=== PATIENT | male | born 1955 | race Caucasian/White ===

== ENCOUNTER → 2016-11-06 | Outpatient (CLI) | payer OTHER ==
[~2016-11-06] MED LIST: CYAN1000P SQ; DIOV160T6 PO; FOLI1 PO; GEMF600T PO; METO25 PO; MONT10 PO; NORC7.5T PO; OMEP20TA PO
[2016-11-06 07:23] LABS: AUTOMATED NEUTROPHIL # 0.7 TH/MM3 (1.8-7.7); BASOPHIL % 1.1 % (0.0-2.0); EOSINOPHIL # 0.2 TH/MM3 (0-0.4); EOSINOPHIL % 8.4 % (0.0-4.0); HEMATOCRIT 41.4 % (39.0-51.0); LYMPH % 46.5 % (9.0-44.0); LYMPHOCYTE # 1.1 TH/MM3 (1.0-4.8); MEAN CORPUSCULAR HGB CONC 34.4 % (32.0-36.0); MONO % 14.2 % (0.0-8.0); NEUT % 29.8 % (16.0-70.0); PLATELET COUNT 171 TH/MM3 (150-450); RED BLOOD COUNT 4.45 MIL/MM3 (4.50-5.90); RED CELL DISTRIBUTION WIDTH 12.7 % (11.6-17.2); WHITE BLOOD COUNT 2.3 TH/MM3 (4.0-11.0)
[2016-11-06 07:31] LABS: HEMO FLAGS AUTO DIFF
[2016-11-06 08:12] LABS: EOSINOPHILS 10 % (0-4); NEUTROPHIL # MANUAL DIFF 0.7 TH/MM3 (1.8-7.7); POLYS (SEG NEUTROPHILS) 31 % (16-70); WBC DIFF SAMPLE 100
[2016-11-06 08:13] LABS: PLATELET ESTIMATE SMEAR NORMAL (NORMAL); PLATELET MORPHOLOGY NORMAL (NORMAL); SCAN/DIFF FINAL DIFF MANUAL
[2016-11-06 08:16] LABS: ANION GAP 7 MEQ/L (5-15); BICARBONATE 29.9 MEQ/L (21.0-32.0); BLOOD UREA NITROGEN 10 MG/DL (7-18); CHLORIDE 104 MEQ/L (98-107); GLOMERULAR FILTRATION RATE 99 ML/MIN (>89); GLUCOSE,FASTING 99 MG/DL (74-99); POTASSIUM 4.5 MEQ/L (3.5-5.1); SODIUM (NA) 141 MEQ/L (136-145)
[2016-11-06 08:37] LABS: ALKALINE PHOSPHATASE 51 U/L (45-117); ALT (GPT) 28 U/L (12-78); AST (GOT) 24 U/L (15-37); HDL CHOLESTEROL 63.2 MG/DL (40.0-60.0); TOTAL BILIRUBIN ADULT 0.3 MG/DL (0.2-1.0)
== END ==
LOC: CLAB 07:05
PROVIDERS: ATTEND Family Medicine
DX: I10 Essential (primary) hypertension (principal); K21.9 Gastro-esophageal reflux disease without esophagitis; D68.0 Von Willebrand disease; D72.819 Decreased white blood cell count, unspecified
CPT/HCPCS: 36415; 80053; 80061; 82607; 82746; 85007; 85027

== ENCOUNTER → 2016-11-13 | Outpatient (CLI) | payer OTHER ==
--- NOTE | 2016-11-13 09:51 | RADRPT ---
EXAM DATE/TIME: 11/13/2016 09:23 [place] COMPARISON: No previous studies available for comparison. INDICATIONS : Evaluate lung status. Shortness of breath with exercise and cough. MEDICAL HISTORY : Pulmonary fibrosis. SURGICAL HISTORY : None. ENCOUNTER: Initial ACUITY: 1 week PAIN SCORE: 0/10 LOCATION: Bilateral chest FINDINGS: Trace bibasilar atelectasis. No fibrotic changes are seen. In fact, the lungs appear somewhat hyperex panded. No pleural effusion. No pneumothorax. Heart size within normal limits. CONCLUSION: Trace bibasilar atelectasis. Lungs appear hyperexpanded. Wild Payton MD on November 13, 2016 at 9:49 Board Certified Radiologist. This report was verified electronically.
--- NOTE | 2016-11-27 11:25 | RSPPFT ---
DATE OF PROCEDURE: 11/13/16 COMMENTS: Spirometry is within normal limits. Post-bronchodilator study demonstrated mild improvements in the FVC. Lung volumes appear unremarkable. Diffusion capacity is normal. Flow volume loops appear unremarkable. IMPRESSION: 1. Essentially normal pulmonary function study. 2. Mild response to use of bronchodilator indicating reactive airways. 3. Normal diffusion capacity.
== END ==
LOC: HRSP 07:51
DX: R05 Cough (principal); R06.09 Other forms of dyspnea; J84.10 Pulmonary fibrosis, unspecified
CPT/HCPCS: 71020; 94060; 94726; 94729

== ENCOUNTER → 2017-02-24 | Outpatient (CLI) | payer OTHER ==
[2017-02-24 10:29] LABS: AUTOMATED NEUTROPHIL # 2.9 TH/MM3 (1.8-7.7); BASOPHIL % 0.4 % (0.0-2.0); EOSINOPHIL # 0.1 TH/MM3 (0-0.4); EOSINOPHIL % 2.8 % (0.0-4.0); HEMATOCRIT 41.2 % (39.0-51.0); HEMO FLAGS DIFF FINAL; LYMPH % 20.8 % (9.0-44.0); MEAN CELL VOLUME 93.8 FL (80.0-100.0); MEAN CORPUSCULAR HEMOGLOBIN 32.2 PG (27.0-34.0); MEAN CORPUSCULAR HGB CONC 34.4 % (32.0-36.0); MONO % 12.2 % (0.0-8.0); NEUT % 63.8 % (16.0-70.0); PLATELET COUNT 195 TH/MM3 (150-450); RED BLOOD COUNT 4.39 MIL/MM3 (4.50-5.90); RED CELL DISTRIBUTION WIDTH 12.8 % (11.6-17.2); WHITE BLOOD COUNT 4.6 TH/MM3 (4.0-11.0)
[2017-02-24 10:55] LABS: ALKALINE PHOSPHATASE 50 U/L (45-117); HDL CHOLESTEROL 73.3 MG/DL (40.0-60.0); TOTAL BILIRUBIN ADULT 0.4 MG/DL (0.2-1.0)
[2017-02-24 11:06] LABS: ALT (GPT) 28 U/L (12-78); ANION GAP 8 MEQ/L (5-15); AST (GOT) 30 U/L (15-37); BICARBONATE 29.2 MEQ/L (21.0-32.0); BLOOD UREA NITROGEN 10 MG/DL (7-18); CHLORIDE 104 MEQ/L (98-107); GLOMERULAR FILTRATION RATE 102 ML/MIN (>89); GLUCOSE,FASTING 99 MG/DL (74-99); LDL CHOLESTEROL 73 MG/DL (0-99); POTASSIUM 4.6 MEQ/L (3.5-5.1); SODIUM (NA) 141 MEQ/L (136-145)
== END ==
LOC: CLAB 10:01
PROVIDERS: ATTEND Family Medicine
DX: I10 Essential (primary) hypertension (principal); K21.9 Gastro-esophageal reflux disease without esophagitis; E78.1 Pure hyperglyceridemia; D72.819 Decreased white blood cell count, unspecified
CPT/HCPCS: 36415; 80053; 80061; 85025

== ENCOUNTER 2018-05-27 22:23 | Inpatient (IN) ==
--- NOTE | 2018-05-27 22:56 | ED ---
HPI General Chief Complaint: Seizure Stated Complaint: Poss Seziure Time Seen by Provider: 05/27/18 22:35 Source: patient, family and EMS Mode of arrival: EMS Limitations: no limitations History of Present Illness HPI Narrative: 62-year-old male presents to the emergency department by EMS transport from home after witnessed seizure by spouse. According the patient he was in his usual state of fair health today got up at 430 AM to work came home from work and is fuzzy about the details but states that when she returned home from work has been met her at home as he had driven his car to pick his up from work and had forgotten that she was going to drive herself home from work today. Shortly after after the returned home she identified that the patient had appear to have had urinary incontinence in the bed and found blood in the bathroom and patient complained to her of having a canker sore on the tongue and she identified that he had had a tongue laceration presumptively from biting his tongue and presumed he may have had a seizure earlier in the day. is suggested that they come to the emergency room to be evaluated however the patient declined and reported he just wanted to lay down to take a nap. notes shortly after patient lying down to take a nap she heard him making noises and went into the bedroom and found him having a generalized tonic-clonic seizure that lasted 1-2 minutes. Patient was postictal afterwards and had had urine incontinence and had bitten his tongue again. No trauma was associated with the event as patient had seizure in the bed. did call paramedics to transport the patient to the hospital. Patient takes no seizure medications. 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 Patient today was working out of doors and states that he felt he became overheated and try to overcompensate with aggressive water hydration. Mentation at this time is intact. Patient also has history of hypertension alpha-1 antitrypsin deficiency and von Willebrand's disease. No recent febrile illness no chest pain patient denies any headache neck pain back pain chest pain abdominal pain joint pain or injury. MD complaint: seizure Onset (ago): minute(s) Related Data Home Medications Medication Instructions Recorded Confirmed amlodipine 5 mg PO DAILY 05/27/18 05/27/18 ascorbic acid (vitamin C) [Vitamin 2,000 mg PO DAILY 05/27/18 05/27/18 C] pnfytwn-orrrbueoj-xcbz 2 tab PO DAILY 05/27/18 05/27/18 cinnamon bark [Cinnamon] 300 mg PO DAILY 05/27/18 05/27/18 cyanocobalamin (vitamin B-12) 1,000 mcg IM Q2W 05/27/18 05/27/18 [Vitamin B-12] folic acid 1 mg PO DAILY 05/27/18 05/27/18 gemfibrozil 600 mg PO DAILY 05/27/18 05/27/18 irbesartan 300 mg PO DAILY 05/27/18 05/27/18 vy-hro-poyfp acid-lutein [Centrum 1 tab PO DAILY 05/27/18 05/27/18 Silver] omeprazole 20 mg PO DAILY 05/27/18 05/27/18 Allergies Allergy/AdvReac Type Severity Reaction Status Date / Time aspirin Allergy Severe Bleeding Verified 05/27/18 22:39 Review of Systems Constitutional Denies body ache(s) and Denies fever(s) Eyes Denies blurry vision and Denies diplopia ENT Denies change in voice, Denies headache(s) and Reports tongue swelling ( laceration) Cardiovascular Denies chest pain and Denies syncope Respiratory Denies chest congestion and Denies dyspnea Gastrointestinal Denies abdominal pain and Denies vomiting Genitourinary Denies difficulty urinating and Reports urinary incontinence (today) Musculoskeletal Denies back pain, Denies muscle weakness and Denies neck pain Integumentary/Breasts Denies pruritus and Denies rash Neurologic Denies dizziness, Denies headache(s), Denies focal weakness, Denies loss of vision and Reports convulsions Psychiatric Denies anxiety and Denies depression Endocrine Denies excessive sweating and Denies fatigue Hematologic/Lymphatic Denies lymphadenopathy Allergic/Immunologic Denies urticaria PMF Medical History Medical History Kwfit-1-alslzcvqypx deficiency (Acute) Hypertension (Acute) Hyponatremia (Acute) Seizure (Acute) Von Willebrand disease (Acute) Social History Social History Smoking Status: Former smoker How Often Do You Have a Drink Containing Alcohol: 4 or more times a week Recent Travel in [facility] within the Last 8 Weeks: No Recent Out of Country Travel within the Last 8 Weeks: No Immunization History Tetanus Immunization: Unsure Hx Influenza Vaccine This Season: Yes Exam Narrative Exam Narrative: GENERAL: Well-developed well-nourished male no acute distress no respiratory distress GCS 15 SKIN: Focused skin assessment warm/dry. HEAD: Atraumatic. Normocephalic. EYES: Pupils equal and round. No scleral icterus. No injection or drainage. ENT: No nasal bleeding or discharge. Mucous membranes pink and moist. Less than 1 cm laceration to the anterior dorsum of the tongue-bleeding controlled, no trismus, no jaw pain NECK: Trachea midline. No JVD. No midline tenderness to direct palpation along the cervical spine no bony step-off. CARDIOVASCULAR: Regular rate and rhythm. No murmur appreciated. RESPIRATORY: No accessory muscle use. Clear to auscultation. Breath sounds equal bilaterally. GASTROINTESTINAL: Abdomen soft, non-tender, nondistended. Hepatic and splenic margins not palpable. MUSCULOSKELETAL: No obvious deformities. No clubbing. No cyanosis. No edema. NEUROLOGICAL: Awake and alert. GCS 15. No obvious cranial nerve deficits. Motor grossly within normal limits. No limb ataxia. No pronator drift. Normal speech. PSYCHIATRIC: Appropriate mood and affect; insight and judgment normal. Course Initial Documented Vital Signs Temperature 97.7 F 05/27/18 22:29 Pulse Rate 92 H 05/27/18 22:29 Respiratory Rate 20 05/27/18 22:29 Blood Pressure 142/85 H 05/27/18 22:29 Pulse Oximetry 92 L 05/27/18 22:29 Last Documented Vital Signs Temperature 97.7 F 05/27/18 22:29 Pulse Rate 82 05/28/18 00:49 Respiratory Rate 20 05/28/18 00:49 Blood Pressure 140/81 05/28/18 00:49 Pulse Oximetry 96 05/28/18 00:49 Medical Decision Making [facility] Narrative Medical decision making narrative: Patient with report of witnessed seizure and possible unwitnessed seizure presents by EMS transport prior history of seizure related to hyponatremia 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 white count was 12,000 the patient had no fever no chills no cough no congestion no sore throat no earache no neck pain no shortness of breath no chest pain no abdominal pain no nausea no vomiting no diarrhea no dysuria frequency urgency skin rash joint pain or swelling. Patient denies any recent infectious process. Most likely white count reflects stress demargination and dehydration. Patient will be admitted for new onset seizure. Discussed with Dr Casas --- OBS Medical Screen Exam Complete: Yes Emergency Medical Condition: Yes Differential Diagnosis Differential Diagnosis: Seizure, arrhythmia, syncope, CVA, TIA, hypoxia, metabolic encephalopathy, electrolyte disturbance Medical Records Medical records reviewed: Yes I reviewed the patient's medical records. Lab Data Lab results reviewed: Yes I reviewed the patient's lab results. Result diagrams: 05/27/18 23:00 05/27/18 23:00 Lab Results 05/27/18 05/27/18 05/27/18 Range/Units 22:49 23:00 23:00 WBC 12.0 H (4.0-11.0) th/mm3 RBC 4.23 L (4.50-5.90) mil/mm3 Hgb 13.7 (13.0-17.0) gm/dL Hct 39.1 (39.0-51.0) % MCV 92.5 (80.0-100.0) fL MCH 32.3 (27.0-34.0) pg MCHC 34.9 (32.0-36.0) % RDW 12.6 (11.6-17.2) % Plt Count 173 (150-450) th/mm3 MPV 7.4 (7.0-11.0) fL Neut % (Auto) 82.9 H (16.0-70.0) % Lymph % (Auto) 5.2 L (9.0-44.0) % [place] % (Auto) 11.2 H (0.0-8.0) % Eos % (Auto) 0.6 (0.0-4.0) % Baso % (Auto) 0.1 (0.0-2.0) % Neut # (Auto) 10.0 H (1.8-7.7) th/mm3 Lymph # (Auto) 0.6 L (1.0-4.8) th/mm3 [place] # (Auto) 1.3 H (0.0-0.9) th/mm3 Eos # (Auto) 0.1 (0.0-0.4) th/mm3 Baso # (Auto) 0.0 (0.0-0.2) th/mm3 WBC Differential . Differential Comment Auto diff final Sodium 125 L (136-145) meq/L Potassium 2.7 L* (3.5-5.1) meq/L Chloride 86 L (98-107) meq/L Carbon Dioxide 23.3 (21.0-32.0) meq/L Anion Gap 16 H (5-15) meq/L BUN 7 (7-18) mg/dL Creatinine 1.04 (0.60-1.30) mg/dL Estimated GFR 73 L (>89) mL/min POC Glucose 116 H (68-110) mg/dl Random Glucose 142 H (74-106) mg/dL Calcium 8.1 L (8.5-10.1) mg/dL Magnesium 2.1 (1.5-2.5) mg/dL Total Bilirubin 0.5 (0.2-1.0) mg/dL AST 34 (15-37) U/L ALT 41 (12-78) U/L Alkaline Phosphatase 58 (45-117) U/L Total Protein 7.0 (6.4-8.2) g/dL Albumin 3.7 (3.4-5.0) g/dL Serum Alcohol Less than 3 (0-5) mg/dL Imaging Data Radiologist's impression: Head CT 05/28/18 00:43 CONCLUSION: No acute intracranial abnormality. . ECG Data EKG Prior to Arrival: No Attestation: I personally reviewed and interpreted this ECG as follows: (EKG normal sinus rhythm rate [address] elevation or injury pattern poor R-wave progression septally V1 V2 nonspecific T-wave changes) Prior ECG tracings: not available for review Discharge Plan Discharge Disposition Patient Disposition: 30 Still Patient Discharge Condition Condition: Stable Discharge Details Diagnosis: Generalized seizure, Hypokalemia, Hyponatremia Physicians Team ED Provider: Vanessa Hendrickson Primary Care Provider: UNKNOWN, Rxs /Orders / Referrals /Forms Prescriptions: No Action amlodipine 5 mg Tablet 5 mg PO DAILY RF: 0 gemfibrozil 600 mg Tablet 600 mg PO DAILY RF: 0 omeprazole 20 mg Capsule,Delayed Release(Dr/Ec) 20 mg PO DAILY RF: 0 cyanocobalamin (vitamin B-12) [Vitamin B-12] 1,000 mcg/mL Solution 1,000 mcg IM Q2W RF: 0 folic acid 1 mg Tablet 1 mg PO DAILY RF: 0 irbesartan 300 mg Tablet 300 mg PO DAILY RF: 0 ascorbic acid (vitamin C) [Vitamin C] 1,000 mg Tablet 2,000 mg PO DAILY RF: 0 cinnamon bark [Cinnamon] 500 mg Capsule 300 mg PO DAILY RF: 0 geodgvx-sfylmzjlp-ommo 2 tab PO DAILY RF: 0 mp-jrs-gwmpo acid-lutein [Centrum Silver] 400-250 mcg Tablet,Chewable 1 tab PO DAILY RF: 0 Status ED Status: With Doctor
[2018-05-27 23:33] LABS: Baso % (Auto) 0.1 % (0.0-2.0); Eos # (Auto) 0.1 th/mm3 (0.0-0.4); Eos % (Auto) 0.6 % (0.0-4.0); Hematocrit 39.1 % (39.0-51.0); Hemoglobin 13.7 gm/dL (13.0-17.0); Lymph # (Auto) 0.6 th/mm3 (1.0-4.8); Lymph % (Auto) 5.2 % (9.0-44.0); Mean Corpuscular HGB Conc 34.9 % (32.0-36.0); Mean Corpuscular Hemoglobin 32.3 pg (27.0-34.0); Mean Corpuscular Volume 92.5 fL (80.0-100.0); Mean Platelet Volume 7.4 fL (7.0-11.0); Mono # (Auto) 1.3 th/mm3 (0.0-0.9); Mono % (Auto) 11.2 % (0.0-8.0); Neut % (Auto) 82.9 % (16.0-70.0); Platelet Count 173 th/mm3 (150-450); Red Blood Count 4.23 mil/mm3 (4.50-5.90); Red Cell Distribution Width 12.6 % (11.6-17.2)
[2018-05-27 23:53] LABS: Alanine Aminotransferase 41 U/L (12-78); Albumin 3.7 g/dL (3.4-5.0); Alkaline Phosphatase 58 U/L (45-117); Anion Gap 16 meq/L (5-15); Aspartate Aminotransferase 34 U/L (15-37); Blood Urea Nitrogen 7 mg/dL (7-18); Calcium 8.1 mg/dL (8.5-10.1); Carbon Dioxide 23.3 meq/L (21.0-32.0); Chloride 86 meq/L (98-107); Glomerular Filtration Rate 73 mL/min (>89); Glucose,Random 142 mg/dL (74-106); Magnesium 2.1 mg/dL (1.5-2.5); Sodium 125 meq/L (136-145)
[2018-05-28 00:05] LABS: Potassium 2.7 meq/L (3.5-5.1)
[2018-05-28] MEDS ORDERED: Potassium Chlor 10 mEq Premix 10 MEQ/100 ML PIGGYBACK IV.SIG ONE (00:07)
[2018-05-28] MEDS ORDERED: Sod Chloride 0.9% Inj 1,000 ML IV.CONT SCH (00:15)
--- NOTE | 2018-05-28 01:22 | CT ---
EXAM DATE: 05/28/2018 1:18 AM EDT AGE/SEX: 62 years / Male INDICATIONS: Possible seizure. CLINICAL DATA: This is the patient's initial encounter. Patient reports that signs and symptoms have been present for 1 day and indicates a pain score of 0/10. MEDICAL/SURGICAL HISTORY: Hypertension. Seizures. None. RADIATION DOSE: 43.15 CTDI (mGy) COMPARISON: No prior exams available for comparison. TECHNIQUE: CT of the head without contrast. Using automated exposure control and adjustment of the mA and/or kV according to patient size, radiation dose was kept as low as reasonably achievable to ob tain optimal diagnostic quality images. DICOM format image data is available electronically for revi ew and comparison. FINDINGS: Cerebrum: The ventricles are normal for age. No evidence of midline shift, mass lesion, hemorrhage or acute infarction. No extraaxial fluid collections are seen. Subcentimeter old lacunar infarct lef t periventricular white matter. Posterior Fossa: The cerebellum and brainstem are intact. The 4th ventricle is midline. The cerebe llopontine angle is unremarkable. Extracranial: The visualized portion of the orbits is intact. Skull: The calvaria is intact. No evidence of skull fracture. CONCLUSION: No acute intracranial abnormality. . Electronically signed by: Wild Payton MD 05/28/2018 1:21 AM EDT
--- NOTE | 2018-05-28 02:13 | XR ---
EXAM DATE: 05/28/2018 2:08 AM EDT AGE/SEX: 62 years / Male INDICATIONS: Seizures. CLINICAL DATA: This is the patient's initial encounter. Patient reports that signs and symptoms have been present for 1 day and indicates a pain score of 0/10. MEDICAL/SURGICAL HISTORY: Hypertension. None. COMPARISON: [facility], XR CHEST PA AND LAT, 06/28/2017. . FINDINGS: Mild atelectasis seen at both bases. No pleural effusion or pneumothorax. Heart size stable, within n ormal limits. CONCLUSION: Mild bibasilar atelectasis. Otherwise negative and unchanged. Electronically signed by: Wild Payton MD 05/28/2018 2:11 AM EDT
[2018-05-28] MEDS ORDERED: Bisacodyl 10 MG Supp RECTAL PRN (02:14)
[2018-05-28] MEDS: Sod Chloride 0.9% Inj 1,000 ML IV.CONT SCH ×2 (02:40→06:46)
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
[2018-05-28] MEDS: Acetaminophen 325 MG Tablet PO PRN ×2 (03:58→17:44)
[2018-05-28] MEDS ORDERED: levETIRAcetam 1000mg/100mL Inj 100 ML IV.SIG STA (05:50)
--- NOTE | 2018-05-28 07:51 | P.PN ---
Subjective Interval history: Patient and report improved mentation and back to baseline. No further seizures since admission. No overnight concerns. Physical Exam Vital signs: Vital Signs 05/27/18 22:29 05/27/18 22:44 05/27/18 22:52 Temperature 97.7 F Pulse Rate 92 H Respiratory Rate 20 Blood Pressure 142/85 H Pulse Oximetry 92 L 92 L 94 L 05/28/18 00:49 05/28/18 03:20 05/28/18 03:48 Temperature 98.4 F Pulse Rate 82 81 81 Respiratory Rate 20 14 19 Blood Pressure 140/81 148/86 H 138/75 Pulse Oximetry 96 96 92 L Intake & Output 05/27/18 05/28/18 05/28/18 18:59 06:59 18:59 Intake Total 2099 Balance 2099 Weight 83.46 kg Intake: IV 2099 NS Inj 1,000 ML @ 100 mls/hr IV 1999 .CONT .Q10H SAMANTHA Rx#:[id number] KCl 10 mEq Premix Inj 10 meq In 100 / 100 100 ml @ 100 mls/hr IV.SIG ONCE ONE Rx#:[id number] Other: Weight On Admission 83.461 kg Narrative: GENERAL: lying comfortably in bed, in NAD SKIN: Warm and dry. HEENT: Normocephalic. No scleral icterus. No injection or drainage. MOM. Tongue with some well demarcated paredes with bruising. NECK: Supple, trachea midline. No JVD or lymphadenopathy. CARDIOVASCULAR: Regular rate and rhythm without murmurs, gallops, or rubs. RESPIRATORY: Breath sounds equal bilaterally. No accessory muscle use. GASTROINTESTINAL: Abdomen soft, non-tender, nondistended. MUSCULOSKELETAL: No cyanosis, or edema. BACK: Nontender without obvious deformity. No CVA tenderness. NEURO: AAOx3, sensory intact, motor systems 5/5, Cn 2-12 intact. Results - Labs CBC & Chem 7: 05/28/18 07:41 05/28/18 07:41 Laboratory Results - last 24 hr 05/27/18 05/27/18 05/27/18 22:49 23:00 23:00 WBC 12.0 H RBC 4.23 L Hgb 13.7 Hct 39.1 MCV 92.5 MCH 32.3 MCHC 34.9 RDW 12.6 Plt Count 173 MPV 7.4 Neut % (Auto) 82.9 H Lymph % (Auto) 5.2 L [place] % (Auto) 11.2 H Eos % (Auto) 0.6 Baso % (Auto) 0.1 Neut # (Auto) 10.0 H Lymph # (Auto) 0.6 L [place] # (Auto) 1.3 H Eos # (Auto) 0.1 Baso # (Auto) 0.0 WBC Differential . Differential Comment Auto diff final Sodium 125 L Potassium 2.7 L* Chloride 86 L Carbon Dioxide 23.3 Anion Gap 16 H BUN 7 Creatinine 1.04 Estimated GFR 73 L POC Glucose 116 H Random Glucose 142 H Calcium 8.1 L Magnesium 2.1 Total Bilirubin 0.5 AST 34 ALT 41 Alkaline Phosphatase 58 Total Protein 7.0 Albumin 3.7 Serum Alcohol Less than 3 - Imaging Impressions Head CT 05/28/18 00:43 CONCLUSION: No acute intracranial abnormality. . Chest X-Ray 05/28/18 01:52 CONCLUSION: Mild bibasilar atelectasis. Otherwise negative and unchanged. Assessment and Plan - Assessment (1) Seizure Code(s): R56.9 - Unspecified convulsions Status: Acute (2) Dehydration Code(s): E86.0 - Dehydration Status: Acute (3) Hypokalemia Code(s): E87.6 - Hypokalemia Status: Acute - Plan 62 y/o CM with PMHx of HTN, HLD, VWD, and Chronic Hyponatremia admitted for IP mgmt of Seizure activity, HD#1 A/P: 1. Seizure: 2nd episode in lifetime, hx of Seizure approximately 6yrs ago associated w/ medication for VWD which caused SIADH. Likely due to Hyponatremia, Na 125 on admission, on NS and free water restriction CT Head w/ no acute findings, images reviewed. Getting MRI Brain to eval for mass/seizure focus Seizure Precautions Ativan PRN Consulted Neurology for further recommendations- appreciate assistance with mgmt. Neg etoh 2. Hypokalemia: K 2.9 from 2.7, on kCl 40meq PO Q8hrs x3 doses and 20meq/L of NS, rechecking BMP this afternoon and in the AM. Mag WNL. Patient is on Tele. 3. Hyponatremia: see above. Likely SIADH. 4. HTN/HLD: cont. home ARB, Norvasc, and Gemfibrozil 5. GERD: cont. PPI 6. DVT Prophylaxis: SCD/Teds 7. Dispo: awaiting MRI results and Neuro reccs Code Status: full Discussed Condition With: patient, patient's , RN
[2018-05-28 08:26] LABS: Baso % (Auto) 0.1 % (0.0-2.0); Eos % (Auto) 0.3 % (0.0-4.0); Hematocrit 39.2 % (39.0-51.0); Hemoglobin 13.7 gm/dL (13.0-17.0); Lymph # (Auto) 0.4 th/mm3 (1.0-4.8); Mean Corpuscular HGB Conc 35.1 % (32.0-36.0); Mean Corpuscular Hemoglobin 33.1 pg (27.0-34.0); Mean Corpuscular Volume 94.3 fL (80.0-100.0); Mean Platelet Volume 7.4 fL (7.0-11.0); Mono # (Auto) 0.9 th/mm3 (0.0-0.9); Mono % (Auto) 11.4 % (0.0-8.0); Neut # (Auto) 6.5 th/mm3 (1.8-7.7); Neut % (Auto) 83.2 % (16.0-70.0); Platelet Count 152 th/mm3 (150-450); Red Blood Count 4.16 mil/mm3 (4.50-5.90); Red Cell Distribution Width 12.4 % (11.6-17.2); White Blood Count 7.9 th/mm3 (4.0-11.0)
[2018-05-28 09:01] LABS: Alanine Aminotransferase 44 U/L (12-78); Albumin 3.6 g/dL (3.4-5.0); Alkaline Phosphatase 61 U/L (45-117); Anion Gap 12 meq/L (5-15); Aspartate Aminotransferase 64 U/L (15-37); Blood Urea Nitrogen 4 mg/dL (7-18); Carbon Dioxide 26.6 meq/L (21.0-32.0); Chloride 86 meq/L (98-107); Glomerular Filtration Rate Greater Than 89 mL/min (>89); Glucose,Random 117 mg/dL (74-106); Sodium 125 meq/L (136-145); Total Protein 6.6 g/dL (6.4-8.2)
[2018-05-28 09:04] LABS: Potassium 2.9 meq/L (3.5-5.1)
--- NOTE | 2018-05-28 09:30 | P.CONNEU ---
History of Present Illness Service: Neurology Primary Care Provider: UNKNOWN Chief Complaint: Seizure History of Present Illness: Pleasant 62-year-old gentleman admitted for recurrent seizure activity. History given by patient's spouse who is in intensive care nurse. Patient gone to [place] to work on a project was working from 8 to 1:00. He returned home. He was started exhausted. His and gone to work. 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 had arrived home she noticed that she eats what there is blood in the bathroom and he seemed a little confused. This is followed by an episode of convulsive activity while he was laying down. He had about 2 3 events. His sodium was found to be 125. Magnesium normal. Glucose over 100. Calcium slightly low. He has had a seizure in the past however at that time his sodium was believed to be 115. Apart from this there is no family history of seizure activity and he has been doing well. CT brain scan no acute lesion. Review of Systems All other systems reviewed negative except as stated in HPI [facility], [facility] - History History Provided By: Patient - Medical History Medical History: Medical History (Last Updated 05/27/18 @ 22:45 by Grisel Talamantes RN) [id number] deficiency Hypertension Hyponatremia Seizure Von Willebrand disease - Tobacco History Second Hand Smoke Exposure: No Smoking Status: Never smoker - Alcohol History How Often Do You Have a Drink Containing Alcohol: Never - Substance Use History Substance History: No History of Abuse - Travel History Recent Travel in the [place] Within the Last 8 Weeks: No Recent Travel Out of the Country Within the Last 8 Weeks: No - Immunization History Tetanus Immunization: Unsure Hx Influenza Vaccine This Season: Yes Medications and Allergies Active Medications: Active Medications Acetaminophen (Tylenol) 650 mg PO Q4H PRN PRN Reason: Temp > 100.4 Last Admin: 05/28/18 03:58 Dose: 650 mg Al Hydroxide/Mg Hydroxide (Milk Of Magnesia Liq) 30 ml PO Q12H PRN PRN Reason: Mild Constipation Bisacodyl (Dulcolax Supp) 10 mg RECTAL DAILY PRN PRN Reason: SEVERE CONSITIPATION Chlorhexidine Gluconate (Chlorhexidine 2% Cloth) 3 pack TOPICAL DAILY@0400 [facility] Stop: 06/03/18 03:59 Chlorhexidine Gluconate (Chlorhexidine 2% Cloth) 3 pack TOPICAL DAILY@0400 PRN PRN Reason: Extra cloth needed Stop: 06/03/18 03:59 Sodium Chloride (Ns Inj) 1,000 mls @ 100 mls/hr IV.CONT .Q10H SAMANTHA Last Admin: 05/28/18 06:46 Dose: 100 mls/hr Lactulose (Lactulose Liq) 30 ml PO DAILY PRN PRN Reason: SEVERE CONSITIPATION Lorazepam (Ativan Inj) 1 mg IV.PUSH Q5M PRN PRN Reason: SEIZURES Ondansetron HCl (Zofran Inj) 4 mg IV.PUSH Q6H PRN PRN Reason: NAUSEA OR VOMITING Senna/Docusate Sodium (Maddi-Colace) 1 tab PO BID [facility] Sennosides (Senokot) 17.2 mg PO Q12H PRN PRN Reason: Moderate Constipation Sodium Chloride (Ns Flush) 2 ml IV.FLUSH BID [facility] Sodium Chloride (Ns Flush) 2 ml IV.FLUSH PRN PRN PRN Reason: FLUSH AFTER USING IV ACCESS Allergies Allergy/AdvReac Type Severity Reaction Status Date / Time aspirin Allergy Severe Bleeding Verified 05/27/18 22:39 Home Medications Medication Instructions Recorded Confirmed Type amlodipine 5 mg PO DAILY 05/27/18 05/27/18 History ascorbic acid (vitamin C) [Vitamin 2,000 mg PO DAILY 05/27/18 05/27/18 History C] lclzlks-pyqmzmntm-adop 2 tab PO DAILY 05/27/18 05/27/18 History cinnamon bark [Cinnamon] 300 mg PO DAILY 05/27/18 05/27/18 History cyanocobalamin (vitamin B-12) 1,000 mcg IM Q2W 05/27/18 05/27/18 History [Vitamin B-12] folic acid 1 mg PO DAILY 05/27/18 05/27/18 History gemfibrozil 600 mg PO DAILY 05/27/18 05/27/18 History irbesartan 300 mg PO DAILY 05/27/18 05/27/18 History hq-syr-mrmap acid-lutein [Centrum 1 tab PO DAILY 05/27/18 05/27/18 History Silver] omeprazole 20 mg PO DAILY 05/27/18 05/27/18 History Exam Vital signs: Vital Signs 05/27/18 22:29 05/27/18 22:44 05/27/18 22:52 Temperature 97.7 F Pulse Rate 92 H Respiratory Rate 20 Blood Pressure 142/85 H Pulse Oximetry 92 L 92 L 94 L 05/28/18 00:49 05/28/18 03:20 05/28/18 03:48 Temperature 98.4 F Pulse Rate 82 81 81 Respiratory Rate 20 14 19 Blood Pressure 140/81 148/86 H 138/75 Pulse Oximetry 96 96 92 L Intake & Output 05/27/18 05/28/18 05/28/18 18:59 06:59 18:59 Intake Total 2099 Balance 2099 Weight 83.46 kg Intake: IV 2099 NS Inj 1,000 ML @ 100 mls/hr IV 1999 .CONT .Q10H SAMANTHA Rx#:[id number] KCl 10 mEq Premix Inj 10 meq In 100 / 100 100 ml @ 100 mls/hr IV.SIG ONCE ONE Rx#:[id number] Other: Weight On Admission 83.461 kg Narrative: GENERAL: in NAD, SKIN: Warm and dry. HEAD: Atraumatic. Normocephalic. EYES: Pupils equal and round. No scleral icterus. ENT: No nasal bleeding or discharge. NECK: Trachea midline. No JVD. CARDIOVASCULAR: Regular rate and rhythm. RESPIRATORY: No accessory muscle use. GASTROINTESTINAL: Abdomen soft, non-tender, nondistended. MUSCULOSKELETAL: Extremities without clubbing, cyanosis, or edema. No obvious deformities. NEUROLOGICAL: Drowsy easily arousable pleasant no facial asymmetry tongue laceration moving all extremities gravity going to MRI msr 1-2+ sym, no clonus, planterflexor, PSYCHIATRIC: Appropriate mood and affect; insight and judgment normal. - Constitutional no acute distress - Routine HEENT Exam Head: Present: normocephalic Results - Labs CBC & Chem 7: 05/28/18 07:41 05/28/18 07:41 Labs: Laboratory Results - last 24 hr 05/27/18 05/27/18 05/27/18 22:49 23:00 23:00 WBC 12.0 H RBC 4.23 L Hgb 13.7 Hct 39.1 MCV 92.5 MCH 32.3 MCHC 34.9 RDW 12.6 Plt Count 173 MPV 7.4 Neut % (Auto) 82.9 H Lymph % (Auto) 5.2 L [place] % (Auto) 11.2 H Eos % (Auto) 0.6 Baso % (Auto) 0.1 Neut # (Auto) 10.0 H Lymph # (Auto) 0.6 L [place] # (Auto) 1.3 H Eos # (Auto) 0.1 Baso # (Auto) 0.0 WBC Differential . Differential Comment Auto diff final Sodium 125 L Potassium 2.7 L* Chloride 86 L Carbon Dioxide 23.3 Anion Gap 16 H BUN 7 Creatinine 1.04 Estimated GFR 73 L POC Glucose 116 H Random Glucose 142 H Calcium 8.1 L Magnesium 2.1 Total Bilirubin 0.5 AST 34 ALT 41 Alkaline Phosphatase 58 Total Protein 7.0 Albumin 3.7 Serum Alcohol Less than 3 05/28/18 05/28/18 07:41 07:41 WBC 7.9 RBC 4.16 L Hgb 13.7 Hct 39.2 MCV 94.3 MCH 33.1 MCHC 35.1 RDW 12.4 Plt Count 152 MPV 7.4 Neut % (Auto) 83.2 H Lymph % (Auto) 5.0 L [place] % (Auto) 11.4 H Eos % (Auto) 0.3 Baso % (Auto) 0.1 Neut # (Auto) 6.5 Lymph # (Auto) 0.4 L [place] # (Auto) 0.9 Eos # (Auto) 0.0 Baso # (Auto) 0.0 WBC Differential . Differential Comment Auto diff final Sodium 125 L Potassium 2.9 L* Chloride 86 L Carbon Dioxide 26.6 Anion Gap 12 BUN 4 L Creatinine 0.84 Estimated GFR Greater than 89 POC Glucose Random Glucose 117 H Calcium 8.0 L Magnesium Total Bilirubin 0.7 AST 64 H ALT 44 Alkaline Phosphatase 61 Total Protein 6.6 Albumin 3.6 Serum Alcohol - Imaging Impressions Head CT 05/28/18 00:43 CONCLUSION: No acute intracranial abnormality. . Chest X-Ray 05/28/18 01:52 CONCLUSION: Mild bibasilar atelectasis. Otherwise negative and unchanged. Review/Management - Diagnosis (1) Von Willebrands disease Code(s): D68.0 - Von Willebrand's disease Status: Acute Current Visit: Yes (2) Generalized seizure Code(s): R56.9 - Unspecified convulsions Status: Acute Current Visit: Yes (3) Hypokalemia Code(s): E87.6 - Hypokalemia Status: Acute Current Visit: Yes (4) Hyponatremia Code(s): E87.1 - Hypo-osmolality and hyponatremia Status: Acute Current Visit: Yes - Review/Management Plan: Recurrent seizure. May be metabolic metabolic in nature related to hyponatremia , fatigue As he is works and drives and his sodium level is not terribly low I feel be safe to start him on an anticonvulsant for seizure prophylaxis. He may have an underlying tendency for seizure. Spouse is in agreement with this plan Recommendations EEG We will start Keppra 500 mg p.o. twice daily at this time No driving operating any heavy or dangerous machinery or swimming alone for at least 6 months of being seizure free
--- NOTE | 2018-05-28 10:28 | MR ---
EXAM DATE: 05/28/2018 10:18 AM EDT AGE/SEX: 62 years / Male INDICATIONS: Seizures. CLINICAL DATA: This is the patient's initial encounter. Patient reports that signs and symptoms have been present for 1 day and indicates a pain score of 0/10. MEDICAL/SURGICAL HISTORY: Hypertension. Seizures. . Hernia. COMPARISON: No prior exams available for comparison. TECHNIQUE: Multiplanar, multisequence examination of the brain was performed without contrast. FINDINGS: Cerebrum: The ventricles are normal for age. No evidence of midline shift, mass lesion, hemorrhage or acute infarction. No extraaxial fluid collections are seen. The pituitary gland and suprasellar cistern are normal in configuration. White Matter: No significant signal abnormalities are seen in the white matter. Posterior Fossa: The cerebellum and brainstem are intact. The 4th ventricle is midline. The cerebel lopontine angle is unremarkable. The cerebellar tonsils are normal in position. Diffusion Imaging: No focal areas of restricted diffusion are seen. No evidence of acute infarction . Extracranial: The visualized portions of the orbits and paranasal sinuses are unremarkable. CONCLUSION: 1. Marked periventricular white matter changes, otherwise negative Electronically signed by: Russell Figueroa MD 05/28/2018 10:27 AM EDT
[2018-05-28] MEDS: Senna/Docusate Sodium 8.6/50 MG Tablet PO SCH ×2 (12:52→20:17)
[2018-05-28] MEDS: levETIRAcetam 500 MG Tablet PO SCH ×2 (13:28→20:17)
--- NOTE | 2018-05-28 14:39 | ECG ---
Date Performed: 05/27/2018 Time Performed: 22:37:15 PTAGE: 62 years EKG: Sinus rhythm MODERATE VOLTAGE CRITERIA FOR LVH, CONSIDER NORMAL VARIANT NONSPECIFIC T-WAVE ABNORMALITY BORDERLINE ECG Since the PREVIOUS TRACING , no significant change noted PREVIOUS TRACIN12/11/2015 07.09 DOCTOR: Nikita Santiago Interpretating Date/Time 05/28/2018 14:33:01
[2018-05-28] MEDS ORDERED: ALPRAZolam 0.5 MG Tablet PO PRN (16:53)
[2018-05-28] MEDS: Pantoprazole Sodium 20 MG DR Tablet PO SCH (17:36)
[2018-05-28] MEDS: amLODIPine 5 MG Tablet PO SCH (17:36)
[2018-05-28] MEDS: Gemfibrozil 600 MG Tablet PO SCH (17:36)
[2018-05-29] MEDS ORDERED: Chlorhexidine Gluconate 2% 1 Pack (2 Cloths) TOPICAL PRN (04:00)
[2018-05-29] MEDS: Chlorhexidine Gluconate 2% 1 Pack (2 Cloths) TOPICAL SCH (04:14)
[2018-05-29 04:29] LABS: Baso % (Auto) 0.3 % (0.0-2.0); Eos # (Auto) 0.1 th/mm3 (0.0-0.4); Eos % (Auto) 1.1 % (0.0-4.0); Hematocrit 38.2 % (39.0-51.0); Hemoglobin 13.1 gm/dL (13.0-17.0); Lymph # (Auto) 1.2 th/mm3 (1.0-4.8); Lymph % (Auto) 20.2 % (9.0-44.0); Mean Corpuscular HGB Conc 34.3 % (32.0-36.0); Mean Corpuscular Hemoglobin 32.2 pg (27.0-34.0); Mean Corpuscular Volume 93.7 fL (80.0-100.0); Mean Platelet Volume 7.3 fL (7.0-11.0); Mono # (Auto) 0.9 th/mm3 (0.0-0.9); Mono % (Auto) 16.1 % (0.0-8.0); Neut # (Auto) 3.6 th/mm3 (1.8-7.7); Neut % (Auto) 62.3 % (16.0-70.0); Platelet Count 150 th/mm3 (150-450); Red Blood Count 4.07 mil/mm3 (4.50-5.90); Red Cell Distribution Width 12.6 % (11.6-17.2); White Blood Count 5.8 th/mm3 (4.0-11.0)
[2018-05-29 05:02] LABS: Anion Gap 8 meq/L (5-15); Aspartate Aminotransferase 53 U/L (15-37); Blood Urea Nitrogen 4 mg/dL (7-18); Calcium 7.8 mg/dL (8.5-10.1); Chloride 102 meq/L (98-107); Glomerular Filtration Rate Greater Than 89 mL/min (>89); Glucose,Random 100 mg/dL (74-106); Potassium 3.6 meq/L (3.5-5.1); Sodium 140 meq/L (136-145)
[2018-05-29 05:03] LABS: Alanine Aminotransferase 35 U/L (12-78); Alkaline Phosphatase 54 U/L (45-117); Total Protein 6.2 g/dL (6.4-8.2)
[2018-05-29] MEDS: Gemfibrozil 600 MG Tablet PO SCH (08:07)
[2018-05-29] MEDS: Senna/Docusate Sodium 8.6/50 MG Tablet PO SCH ×2 (08:07→20:29)
[2018-05-29] MEDS: levETIRAcetam 500 MG Tablet PO SCH ×2 (08:07→20:29)
[2018-05-29] MEDS: Pantoprazole Sodium 20 MG DR Tablet PO SCH (08:07)
[2018-05-29] MEDS: amLODIPine 5 MG Tablet PO SCH (08:07)
--- NOTE | 2018-05-29 10:07 | MG ---
cc: Estuardo Rodas MD EEG RECORD NUMBER: [id number] Six to 8 Hz, post-rhythm 20-40 microvolts, low-amplitude beta, theta in the frontal channels. Good anterior to posterior gradient. Attenuation of background transition into drowsy state. Stage I sleep, vertex waves followed by some arousals. showed transience of central temporal region, likely associated with sleep state. Reduced driving with photic stimulation. Single lead EKG showing sinus rhythm. INTERPRETATION: Normal awake sleep electroencephalogram. Clinical correlation. MD BRIAN Nascimento/rommel/ , 08:16 AM , 08:21 AM MTDD
--- NOTE | 2018-05-29 10:29 | P.PN ---
Subjective Interval history: Patient doing well overnight, F/V/S well. No further seizure since admission. No concerns per patient or at bedside. Physical Exam Vital signs: Vital Signs 05/28/18 12:00 05/28/18 16:00 05/28/18 20:00 Temperature 99 F 98.8 F 98.6 F Pulse Rate 97 H 88 95 H Respiratory Rate 21 21 22 Blood Pressure 148/80 H 124/77 127/82 Pulse Oximetry 93 L 95 91 L 05/29/18 00:00 05/29/18 04:00 05/29/18 09:07 Temperature 99.5 F 98.7 F Pulse Rate 83 81 Respiratory Rate 17 21 Blood Pressure 139/63 147/73 H Pulse Oximetry 92 L 91 L 93 L Intake & Output 05/28/18 05/29/18 05/29/18 18:59 06:59 18:59 Intake Total 1100 / 1100 2400 / 2400 1000 / 1000 Output Total 4750 / 4750 Balance 1100 / 1100 -2350 / -2350 1000 / 1000 Intake: IV 1100 / 1100 1000 / 1000 1000 / 1000 NS + KCl 20 mEq Inj 1,000 ML @ 1000 / 1000 1000 / 1000 100 mls/hr IV.CONT .Q10H SAMANTHA Rx #:[id number] NS Inj 1,000 ML @ 100 mls/hr IV 1000 / 1000 .CONT .Q10H SAMANTHA Rx#:[id number] Keppra 1000 mg/100 mL Premix 100 / 100 100 ML @ 400 mls/hr IV.SIG STAT STA Rx#:[id number] Oral 1400 / 1400 Output: Urine 4750 / 4750 Narrative: GENERAL: lying comfortably in bed, in NAD SKIN: Warm and dry. HEENT: Normocephalic. No scleral icterus. No injection or drainage. MOM. Tongue with some well demarcated paredes with bruising. NECK: Supple, trachea midline. No JVD or lymphadenopathy. CARDIOVASCULAR: Regular rate and rhythm without murmurs, gallops, or rubs. RESPIRATORY: Breath sounds equal bilaterally. No accessory muscle use. GASTROINTESTINAL: Abdomen soft, non-tender, nondistended. MUSCULOSKELETAL: No cyanosis, or edema. BACK: Nontender without obvious deformity. No CVA tenderness. NEURO: AAOx3, sensory intact, motor systems 5/5, CN 2-12 intact. Results - Labs CBC & Chem 7: 05/29/18 03:52 05/29/18 03:52 Laboratory Results - last 24 hr 05/28/18 05/28/18 05/29/18 06:30 13:49 03:52 WBC 5.8 RBC 4.07 L Hgb 13.1 Hct 38.2 L MCV 93.7 MCH 32.2 MCHC 34.3 RDW 12.6 Plt Count 150 MPV 7.3 Neut % (Auto) 62.3 Lymph % (Auto) 20.2 [place] % (Auto) 16.1 H Eos % (Auto) 1.1 Baso % (Auto) 0.3 Neut # (Auto) 3.6 Lymph # (Auto) 1.2 [place] # (Auto) 0.9 Eos # (Auto) 0.1 Baso # (Auto) 0.0 WBC Differential . Differential Comment Auto diff final Sodium Potassium 3.0 L Chloride Carbon Dioxide Anion Gap BUN Creatinine Estimated GFR Random Glucose Calcium Total Bilirubin AST ALT Alkaline Phosphatase Total Protein Albumin Nasal Screen MRSA (PCR) Not detected 05/29/18 03:52 WBC RBC Hgb Hct MCV MCH MCHC RDW Plt Count MPV Neut % (Auto) Lymph % (Auto) [place] % (Auto) Eos % (Auto) Baso % (Auto) Neut # (Auto) Lymph # (Auto) [place] # (Auto) Eos # (Auto) Baso # (Auto) WBC Differential Differential Comment Sodium 140 D Potassium 3.6 Chloride 102 D Carbon Dioxide 30.0 Anion Gap 8 BUN 4 L Creatinine 0.73 Estimated GFR Greater than 89 Random Glucose 100 Calcium 7.8 L Total Bilirubin 0.7 AST 53 H ALT 35 Alkaline Phosphatase 54 Total Protein 6.2 L Albumin 3.0 L D Nasal Screen MRSA (PCR) - Imaging Impressions Head MRI 05/28/18 00:00 CONCLUSION: 1. Marked periventricular white matter changes, otherwise negative Assessment and Plan - Assessment (1) Seizure Code(s): R56.9 - Unspecified convulsions Status: Acute (2) Dehydration Code(s): E86.0 - Dehydration Status: Resolved (3) Hypokalemia Code(s): E87.6 - Hypokalemia Status: Resolved (4) Hyponatremia Code(s): E87.1 - Hypo-osmolality and hyponatremia Status: Acute (5) Hypertension Code(s): I10 - Essential (primary) hypertension Status: Acute - Plan 62 y/o CM with PMHx of HTN, HLD, VWD, and Chronic Hyponatremia admitted for IP mgmt of Seizure activity, HD#2 A/P: 1. Seizure Disorder: No further sz since admission 2nd episode in lifetime, hx of Seizure approximately 6yrs ago associated w/ medication for VWD which caused SIADH. Likely due to Hyponatremia, Na 125 on admission, on NS and free water restriction CT Head w/ no acute findings, images reviewed. MRI Brain no acute findings Seizure Precautions, Ativan PRN Neurology assisting with mgmt, started on Keppra 500mg BID on 05/28, pending eeg results today Neg etoh Transfer to floor as stable Head MRI 05/28/18 00:00 CONCLUSION: 1. Marked periventricular white matter changes, otherwise negative 2. Hypokalemia: resolved, K 3.6 today, K 2.7 on admission, s/p on kCl 40meq PO Q8hrs x3 doses and now only on 20meq/L of NS, rechecking BMP in the AM. Mag WNL. Patient is on Tele. 3. Hyponatremia: resolved, see above. Na 140 today. 4. HTN/HLD: cont. home ARB, Norvasc, and Gemfibrozil 5. GERD: cont. PPI 6. DVT Prophylaxis: SCD/Teds 7. Dispo: awaiting EEG results, transfer to floor Code Status: full Discharge Planning: patient, , RN
--- NOTE | 2018-05-29 15:25 | P.PNNEU ---
Subjective Subjective Comments: no cp, no dyspnea, no sloan, no focal weakness, no vision loss Active Medications: Active Medications Acetaminophen (Tylenol) 650 mg PO Q4H PRN PRN Reason: Temp > 100.4 Last Admin: 05/28/18 17:44 Dose: 650 mg Al Hydroxide/Mg Hydroxide (Milk Of Magnesia Liq) 30 ml PO Q12H PRN PRN Reason: Mild Constipation Alprazolam (Xanax) 0.5 mg PO Q6HR PRN PRN Reason: ANXIETY Amlodipine Besylate (Norvasc) 5 mg PO DAILY [facility] Last Admin: 05/29/18 08:07 Dose: 5 mg Bisacodyl (Dulcolax Supp) 10 mg RECTAL DAILY PRN PRN Reason: SEVERE CONSITIPATION Chlorhexidine Gluconate (Chlorhexidine 2% Cloth) 3 pack TOPICAL DAILY@0400 [facility] Stop: 06/03/18 03:59 Last Admin: 05/29/18 04:14 Dose: 3 pack Chlorhexidine Gluconate (Chlorhexidine 2% Cloth) 3 pack TOPICAL DAILY@0400 PRN PRN Reason: Extra cloth needed Stop: 06/03/18 03:59 Gemfibrozil (Lopid) 600 mg PO DAILY [facility] Last Admin: 05/29/18 08:07 Dose: 600 mg Potassium Chloride/Sodium Chloride (Ns + Kcl 20 Meq Inj) 1,000 mls @ 100 mls/ hr IV.CONT .Q10H [facility] Last Admin: 05/29/18 07:15 Dose: 100 mls/hr Lactulose (Lactulose Liq) 30 ml PO DAILY PRN PRN Reason: SEVERE CONSITIPATION Levetiracetam (Keppra) 500 mg PO BID [facility] Last Admin: 05/29/18 08:07 Dose: 500 mg Lorazepam (Ativan Inj) 1 mg IV.PUSH Q5M PRN PRN Reason: SEIZURES Losartan Potassium (Cozaar) 100 mg PO DAILY [facility] Last Admin: 05/29/18 08:08 Dose: 100 mg Ondansetron HCl (Zofran Inj) 4 mg IV.PUSH Q6H PRN PRN Reason: NAUSEA OR VOMITING Pantoprazole Sodium (Protonix) 20 mg PO DAILY [facility] Last Admin: 05/29/18 08:07 Dose: 20 mg Senna/Docusate Sodium (Maddi-Colace) 1 tab PO BID [facility] Last Admin: 05/29/18 08:07 Dose: 1 tab Sennosides (Senokot) 17.2 mg PO Q12H PRN PRN Reason: Moderate Constipation Sodium Chloride (Ns Flush) 2 ml IV.FLUSH BID [facility] Last Admin: 05/29/18 08:08 Dose: 2 ml Sodium Chloride (Ns Flush) 2 ml IV.FLUSH PRN PRN PRN Reason: FLUSH AFTER USING IV ACCESS Allergies/Adverse Reactions: Allergies Allergy/AdvReac Type Severity Reaction Status Date / Time aspirin Allergy Severe Bleeding Verified 05/27/18 22:39 Review of Systems All other systems reviewed negative except as stated in HPI Physical Exam Vital signs: Vital Signs 05/28/18 16:00 05/28/18 20:00 05/29/18 00:00 Temperature 98.8 F 98.6 F 99.5 F Pulse Rate 88 95 H 83 Respiratory Rate 21 22 17 Blood Pressure 124/77 127/82 139/63 Pulse Oximetry 95 91 L 92 L 05/29/18 04:00 05/29/18 08:00 05/29/18 09:00 Temperature 98.7 F 98.4 F Pulse Rate 81 84 84 Respiratory Rate 21 Blood Pressure 147/73 H 129/66 Pulse Oximetry 91 L 91 L 05/29/18 09:07 05/29/18 12:00 Temperature 98.9 F Pulse Rate 83 Respiratory Rate Blood Pressure 126/70 Pulse Oximetry 93 L 92 L Intake & Output 05/28/18 05/29/18 05/29/18 18:59 06:59 18:59 Intake Total 1100 / 1100 2400 / 2400 1000 / 1000 Output Total 4750 / 4750 Balance 1100 / 1100 -2350 / -2350 1000 / 1000 Intake: IV 1100 / 1100 1000 / 1000 1000 / 1000 NS + KCl 20 mEq Inj 1,000 ML @ 1000 / 1000 1000 / 1000 100 mls/hr IV.CONT .Q10H [facility] Rx #:[id number] NS Inj 1,000 ML @ 100 mls/hr IV 1000 / 1000 .CONT .Q10H [facility] Rx#:[id number] Keppra 1000 mg/100 mL Premix 100 / 100 100 ML @ 400 mls/hr IV.SIG STAT STA Rx#:[id number] Oral 1400 / 1400 Output: Urine 4750 / 4750 Narrative: GENERAL: in NAD, SKIN: Warm and dry. HEAD: Atraumatic. Normocephalic. EYES: Pupils equal and round. No scleral icterus. ENT: No nasal bleeding or discharge. NECK: Trachea midline. No JVD. CARDIOVASCULAR: Regular rate and rhythm. RESPIRATORY: No accessory muscle use. MUSCULOSKELETAL: Extremities without clubbing, cyanosis, or edema. No obvious deformities. NEUROLOGICAL: Sitting up in a chair oriented 3 fluent articulate pleasant pleasant no facial asymmetry tongue laceration moving all extremities gravity PSYCHIATRIC: Appropriate mood and affect; insight and judgment normal. . - Constitutional no acute distress - Routine HEENT Exam Head: Present: normocephalic Objective Laboratory Results - last 24 hr 05/29/18 05/29/18 03:52 03:52 WBC 5.8 RBC 4.07 L Hgb 13.1 Hct 38.2 L MCV 93.7 MCH 32.2 MCHC 34.3 RDW 12.6 Plt Count 150 MPV 7.3 Neut % (Auto) 62.3 Lymph % (Auto) 20.2 [place] % (Auto) 16.1 H Eos % (Auto) 1.1 Baso % (Auto) 0.3 Neut # (Auto) 3.6 Lymph # (Auto) 1.2 [place] # (Auto) 0.9 Eos # (Auto) 0.1 Baso # (Auto) 0.0 WBC Differential . Differential Comment Auto diff final Sodium 140 D Potassium 3.6 Chloride 102 D Carbon Dioxide 30.0 Anion Gap 8 BUN 4 L Creatinine 0.73 Estimated GFR Greater than 89 Random Glucose 100 Calcium 7.8 L Total Bilirubin 0.7 AST 53 H ALT 35 Alkaline Phosphatase 54 Total Protein 6.2 L Albumin 3.0 L D Review/Management - Diagnosis (1) Von Willebrands disease Code(s): D68.0 - Von Willebrand's disease Status: Acute Current Visit: Yes (2) Generalized seizure Code(s): R56.9 - Unspecified convulsions Status: Acute Current Visit: Yes (3) Hypokalemia Code(s): E87.6 - Hypokalemia Status: Resolved Current Visit: Yes (4) Hyponatremia Code(s): E87.1 - Hypo-osmolality and hyponatremia Status: Acute Current Visit: Yes - Review/Management Plan: Recurrent seizure. May be metabolic metabolic in nature related to hyponatremia , fatigue As he is works and drives and his sodium level is not terribly low I feel be safe to start him on an anticonvulsant for seizure prophylaxis. He may have an underlying tendency for seizure. Spouse is in agreement with this plan Recommendations EEG; negative for seizure activity Continue Lorena Can be discharged from neurologic standpoint followed up in the outpatient setting few weeks No driving operating any heavy or dangerous machinery or swimming alone for at least 6 months of being seizure free Discussed with patient and spouse at bedside
[2018-05-30] MEDS: Acetaminophen 325 MG Tablet PO PRN (03:46)
[2018-05-30 06:07] LABS: Hematocrit 37.7 % (39.0-51.0); Mean Corpuscular HGB Conc 34.5 % (32.0-36.0); Mean Corpuscular Hemoglobin 32.5 pg (27.0-34.0); Mean Corpuscular Volume 94.1 fL (80.0-100.0); Mean Platelet Volume 7.4 fL (7.0-11.0); Platelet Count 151 th/mm3 (150-450); Red Blood Count 4.01 mil/mm3 (4.50-5.90); Red Cell Distribution Width 12.8 % (11.6-17.2); White Blood Count 7.2 th/mm3 (4.0-11.0)
[2018-05-30 06:30] LABS: Alanine Aminotransferase 38 U/L (12-78); Albumin 2.9 g/dL (3.4-5.0); Anion Gap 10 meq/L (5-15); Aspartate Aminotransferase 80 U/L (15-37); Blood Urea Nitrogen 4 mg/dL (7-18); Calcium 8.2 mg/dL (8.5-10.1); Carbon Dioxide 28.7 meq/L (21.0-32.0); Chloride 103 meq/L (98-107); Glomerular Filtration Rate Greater Than 89 mL/min (>89); Glucose,Random 101 mg/dL (74-106); Potassium 4.1 meq/L (3.5-5.1); Sodium 142 meq/L (136-145)
[2018-05-30 06:33] LABS: Alkaline Phosphatase 49 U/L (45-117); Total Protein 6.3 g/dL (6.4-8.2)
--- NOTE | 2018-05-30 07:33 | P.PN ---
Subjective Interval history: Patient doing well overnight. No further seizure activities since admission per patient and . Patient is tolerating p.o. and voiding, stooling well. No concerns. Physical Exam Vital signs: Vital Signs 05/29/18 08:00 05/29/18 09:00 05/29/18 09:07 Temperature 98.4 F Pulse Rate 84 84 Respiratory Rate Blood Pressure 129/66 Pulse Oximetry 91 L 93 L 05/29/18 12:00 05/29/18 16:00 05/29/18 17:00 Temperature 98.9 F 98.2 F Pulse Rate 83 76 71 Respiratory Rate 27 H 28 H Blood Pressure 126/70 128/75 Pulse Oximetry 92 L 94 L 95 05/29/18 17:02 05/29/18 18:00 05/29/18 19:00 Temperature Pulse Rate 67 69 75 Respiratory Rate 33 H 20 21 Blood Pressure 136/84 116/69 127/74 Pulse Oximetry 95 98 96 05/29/18 20:00 05/29/18 20:36 05/29/18 21:00 Temperature Pulse Rate 84 85 Respiratory Rate 21 23 Blood Pressure 136/79 140/78 Pulse Oximetry 96 96 96 05/29/18 22:59 05/30/18 02:00 05/30/18 03:07 Temperature 98.3 F 99.2 F Pulse Rate 87 76 Respiratory Rate 18 17 18 Blood Pressure 129/67 129/75 Pulse Oximetry 96 97 Intake & Output 05/29/18 05/30/18 05/30/18 18:59 06:59 18:59 Intake Total 1999 1480 / 1480 Output Total 1949 850 / 850 Balance 50 / 50 630 / 630 Intake: IV 1999 1000 / 1000 NS + KCl 20 mEq Inj 1,000 ML @ 1999 1000 / 1000 100 mls/hr IV.CONT .Q10H [facility] Rx #:[id number] Oral 480 / 480 Output: Urine 1949 850 / 850 Other: # Voids 3 # Bowel Movements 0 Narrative: GENERAL: well nourished male, lying comfortably in bed, in NAD SKIN: Warm and dry. HEENT: Normocephalic. No scleral icterus. No injection or drainage. MOM. Tongue with some well demarcated paredes with bruising. NECK: Supple, trachea midline. No JVD or lymphadenopathy. CARDIOVASCULAR: Regular rate and rhythm without murmurs, gallops, or rubs. RESPIRATORY: Breath sounds equal bilaterally. No accessory muscle use. GASTROINTESTINAL: Abdomen soft, non-tender, nondistended. MUSCULOSKELETAL: No cyanosis, or edema. BACK: Nontender without obvious deformity. No CVA tenderness. NEURO: AAOx3, sensory intact, motor systems 5/5, CN 2-12 intact. Results - Labs CBC & Chem 7: 05/30/18 05:17 05/30/18 05:17 Laboratory Results - last 24 hr 05/30/18 05/30/18 05:17 05:17 WBC 7.2 RBC 4.01 L Hgb 13.0 Hct 37.7 L MCV 94.1 MCH 32.5 MCHC 34.5 RDW 12.8 Plt Count 151 MPV 7.4 Sodium 142 Potassium 4.1 Chloride 103 Carbon Dioxide 28.7 Anion Gap 10 BUN 4 L Creatinine 0.74 Estimated GFR Greater than 89 Random Glucose 101 Calcium 8.2 L Total Bilirubin 0.6 AST 80 H ALT 38 Alkaline Phosphatase 49 Total Protein 6.3 L Albumin 2.9 L Assessment and Plan - Assessment (1) Seizure Code(s): R56.9 - Unspecified convulsions Status: Acute (2) Dehydration Code(s): E86.0 - Dehydration Status: Resolved (3) Hypokalemia Code(s): E87.6 - Hypokalemia Status: Resolved (4) Hyponatremia Code(s): E87.1 - Hypo-osmolality and hyponatremia Status: Acute (5) Hypertension Code(s): I10 - Essential (primary) hypertension Status: Acute - Plan 62 y/o CM with PMHx of HTN, HLD, VWD, and Chronic Hyponatremia admitted for IP mgmt of Seizure activity, HD#3 A/P: 1. Seizure Disorder: No further sz since admission 2nd episode in lifetime, hx of Seizure approximately 6yrs ago associated w/ medication for VWD which caused SIADH. Likely due to Hyponatremia, Na 125 on admission, on NS and free water restriction CT Head w/ no acute findings, images reviewed. MRI Brain no acute findings Seizure Precautions, Ativan PRN Neurology assisting with mgmt, started on Keppra 500mg BID on 05/28, Neg eeg, Can be discharged from neurologic standpoint and followed up in the outpatient setting in a few weeks No driving operating any heavy or dangerous machinery or swimming alone for at least 6 months of being seizure free Head MRI 05/28/18 00:00 CONCLUSION: 1. Marked periventricular white matter changes, otherwise negative 2. Hypokalemia: resolved, K 4.1 today, K 2.7 on admission, Mag WNL. Patient is on Tele. 3. Hyponatremia: resolved, see above. Na 142 today. 4. HTN/HLD: cont. home ARB, Norvasc, and Gemfibrozil 5. GERD: cont. PPI 6. DVT Prophylaxis: SCD/Teds 7. Dispo: stable for D/C, Rx Keppra, F/u with PCP and Neuro Code Status: full Discussed Condition With: patient and Discharge Planning: patient, , RN
[2018-05-30] MEDS: Chlorhexidine Gluconate 2% 1 Pack (2 Cloths) TOPICAL SCH (07:47)
[2018-05-30 08:49] VITALS: BP 123/82; PULSE 69; RESP 16; TEMP 98.5; O2SAT 95
[2018-05-30] MEDS: levETIRAcetam 500 MG Tablet PO SCH (09:03)
[2018-05-30] MEDS: Senna/Docusate Sodium 8.6/50 MG Tablet PO SCH (09:03)
[2018-05-30] MEDS: Gemfibrozil 600 MG Tablet PO SCH (09:04)
[2018-05-30] MEDS: Pantoprazole Sodium 20 MG DR Tablet PO SCH (09:04)
[2018-05-30] MEDS: amLODIPine 5 MG Tablet PO SCH (09:04)
--- NOTE | 2018-05-30 09:31 | P.DS ---
Date of admission: 05/28/18 06:01 Primary care physician: UNKNOWN Brief History from admission: This is a 62-year-old CM with PMHx of HTN, Alpha-1 Antitrypsin Deficiency,and VWD who was brought to the ER by EMS after seizure x2. Patient noted a previous hx of a seizure approximately 6yrs ago after taking a medication for VWD prior to a dental procedure which caused SIADH and Hyponatremia which lead to the seizure. Patient was not started on anticonvulsant medications, no further seizure activity was noted until now. On arrival, Na 125. K+ 2.7. GFR 73. Alcohol negative. CT of head with no acute findings. Patient admitted for Neuro work up and electrolyte correction. DS: Diagnosis - Discharge Diagnosis (1) Seizure Status: Chronic (2) Dehydration Status: Resolved (3) Hypokalemia Status: Resolved (4) Hyponatremia Status: Resolved (5) Hypertension Status: Chronic DS: Medications - Discharge Medications Prescriptions: levetiracetam [Keppra] 500 mg PO BID 30 Days #30 tab DS: Summary Hospital Course: Patient was admitted for evaluation of seizure x2, which was likely due to Hyponatremia, Na was 125 on admission and patient was treated with NS and free water restriction. CT Head w/ no acute findings. MRI Brain no acute findings. Neurology was consulted and patient was started on Keppra 500mg BID on 05/28 with no further seizures during hospitalization. An EEG was performed on 05/29 and showed no seizure activity. K was 2.7 on admission and replaced, K was 4.1 on the day of D/C. Na was 142 on the day of D/C. Patient was continued on his home medications. Patient was discharged in stable condition. Rx: Keppra 500mg BID Follow up: PCP in 1 wk, nwuro in 2-3 wks with Keppra level Restrictions: No driving, operating machinery, or swimming x6mths seizure free - Time Spent with Patient Total time spent providing and/or coordinating discharge services: Greater than 30 minutes - Quality: AMI Clinical Trial Participant: No - Quality: VTE Deep Vein Thrombosis/Pulmonary Embolism Present on Admission: No Exam Vital signs: Vital Signs 05/29/18 12:00 05/29/18 16:00 05/29/18 17:00 Temperature 98.9 F 98.2 F Pulse Rate 83 76 71 Respiratory Rate 27 H 28 H Blood Pressure 126/70 128/75 Pulse Oximetry 92 L 94 L 95 05/29/18 17:02 05/29/18 18:00 05/29/18 19:00 Temperature Pulse Rate 67 69 75 Respiratory Rate 33 H 20 21 Blood Pressure 136/84 116/69 127/74 Pulse Oximetry 95 98 96 05/29/18 20:00 05/29/18 20:36 05/29/18 21:00 Temperature Pulse Rate 84 85 Respiratory Rate 21 23 Blood Pressure 136/79 140/78 Pulse Oximetry 96 96 96 05/29/18 22:59 05/30/18 02:00 05/30/18 03:07 Temperature 98.3 F 99.2 F Pulse Rate 87 76 Respiratory Rate 18 17 18 Blood Pressure 129/67 129/75 Pulse Oximetry 96 97 05/30/18 08:00 Temperature 98.5 F Pulse Rate 69 Respiratory Rate 16 Blood Pressure 123/82 Pulse Oximetry 95 Intake & Output 05/29/18 05/30/18 05/30/18 18:59 06:59 18:59 Intake Total 1999 1480 / 1480 Output Total 1949 850 / 850 Balance 50 / 50 630 / 630 Intake: IV 1999 1000 / 1000 NS + KCl 20 mEq Inj 1,000 ML @ 1999 1000 / 1000 100 mls/hr IV.CONT .Q10H [facility] Rx #:[id number] Oral 480 / 480 Output: Urine 1949 850 / 850 Other: # Voids 3 # Bowel Movements 0 Narrative: GENERAL: well nourished male, in NAD, lying comfortably in bed SKIN: Warm and dry. HEAD: Normocephalic. EYES: No scleral icterus. No injection or drainage. NECK: Supple, trachea midline. No JVD or lymphadenopathy. CARDIOVASCULAR: Regular rate and rhythm without murmurs, gallops, or rubs. RESPIRATORY: Breath sounds equal bilaterally. No accessory muscle use. GASTROINTESTINAL: Abdomen soft, non-tender, nondistended. MUSCULOSKELETAL: No cyanosis, or edema. BACK: Nontender without obvious deformity. No CVA tenderness. Results Procedures completed during hospitalization: n/a Labs on day of discharge: Labs from last 24 hours 05/30/18 05/30/18 05:17 05:17 WBC 7.2 RBC 4.01 L Hgb 13.0 Hct 37.7 L MCV 94.1 MCH 32.5 MCHC 34.5 RDW 12.8 Plt Count 151 MPV 7.4 Sodium 142 Potassium 4.1 Chloride 103 Carbon Dioxide 28.7 Anion Gap 10 BUN 4 L Creatinine 0.74 Estimated GFR Greater than 89 Random Glucose 101 Calcium 8.2 L Total Bilirubin 0.6 AST 80 H ALT 38 Alkaline Phosphatase 49 Total Protein 6.3 L Albumin 2.9 L - Impressions ITS Impressions Head MRI 05/28/18 00:00 CONCLUSION: 1. Marked periventricular white matter changes, otherwise negative Head CT 05/28/18 00:43 CONCLUSION: No acute intracranial abnormality. . Chest X-Ray 05/28/18 01:52 CONCLUSION: Mild bibasilar atelectasis. Otherwise negative and unchanged. Discharge Plan - Discharge Disposition Patient Disposition: Discharge Home - Discharge Condition Condition: Stable - Discharge Order Discharge Orders: Discharge Order (Routine); Ordered 05/30/18 Ordered By: Farida Dacosta - Physicians Team Primary Care Provider: UNKNOWN, Attending Provider: Farida Dacosta Other Providers: Estuardo Rodas MD ; [employer],Insurance
--- NOTE | 2018-05-30 10:24 | P.PNNEU ---
Subjective Subjective Comments: No cp, no dyspnea, mild frontal transient sloan, no focal weakness, no vision loss History of snoring mild daytime fatigue Active Medications: Active Medications Acetaminophen (Tylenol) 650 mg PO Q4H PRN PRN Reason: Temp > 100.4 Last Admin: 05/30/18 03:46 Dose: 650 mg Al Hydroxide/Mg Hydroxide (Milk Of Magnesia Liq) 30 ml PO Q12H PRN PRN Reason: Mild Constipation Alprazolam (Xanax) 0.5 mg PO Q6HR PRN PRN Reason: ANXIETY Amlodipine Besylate (Norvasc) 5 mg PO DAILY [facility] Last Admin: 05/30/18 09:04 Dose: 5 mg Bisacodyl (Dulcolax Supp) 10 mg RECTAL DAILY PRN PRN Reason: SEVERE CONSITIPATION Chlorhexidine Gluconate (Chlorhexidine 2% Cloth) 3 pack TOPICAL DAILY@0400 [facility] Stop: 06/03/18 03:59 Last Admin: 05/30/18 07:47 Dose: Not Given Chlorhexidine Gluconate (Chlorhexidine 2% Cloth) 3 pack TOPICAL DAILY@0400 PRN PRN Reason: Extra cloth needed Stop: 06/03/18 03:59 Gemfibrozil (Lopid) 600 mg PO DAILY [facility] Last Admin: 05/30/18 09:04 Dose: 600 mg Potassium Chloride/Sodium Chloride (Ns + Kcl 20 Meq Inj) 1,000 mls @ 100 mls/ hr IV.CONT .Q10H [facility] Last Admin: 05/30/18 03:12 Dose: 100 mls/hr Lactulose (Lactulose Liq) 30 ml PO DAILY PRN PRN Reason: SEVERE CONSITIPATION Levetiracetam (Keppra) 500 mg PO BID [facility] Last Admin: 05/30/18 09:03 Dose: 500 mg Lorazepam (Ativan Inj) 1 mg IV.PUSH Q5M PRN PRN Reason: SEIZURES Losartan Potassium (Cozaar) 100 mg PO DAILY [facility] Last Admin: 05/30/18 09:03 Dose: 100 mg Ondansetron HCl (Zofran Inj) 4 mg IV.PUSH Q6H PRN PRN Reason: NAUSEA OR VOMITING Pantoprazole Sodium (Protonix) 20 mg PO DAILY [facility] Last Admin: 05/30/18 09:04 Dose: 20 mg Senna/Docusate Sodium (Maddi-Colace) 1 tab PO BID [facility] Last Admin: 05/30/18 09:03 Dose: 1 tab Sennosides (Senokot) 17.2 mg PO Q12H PRN PRN Reason: Moderate Constipation Sodium Chloride (Ns Flush) 2 ml IV.FLUSH BID [facility] Last Admin: 05/29/18 20:29 Dose: 2 ml Sodium Chloride (Ns Flush) 2 ml IV.FLUSH PRN PRN PRN Reason: FLUSH AFTER USING IV ACCESS Allergies/Adverse Reactions: Allergies Allergy/AdvReac Type Severity Reaction Status Date / Time aspirin Allergy Severe Bleeding Verified 05/27/18 22:39 Review of Systems All other systems reviewed negative except as stated in HPI Physical Exam Vital signs: Vital Signs 05/29/18 12:00 05/29/18 16:00 05/29/18 17:00 Temperature 98.9 F 98.2 F Pulse Rate 83 76 71 Respiratory Rate 27 H 28 H Blood Pressure 126/70 128/75 Pulse Oximetry 92 L 94 L 95 05/29/18 17:02 05/29/18 18:00 05/29/18 19:00 Temperature Pulse Rate 67 69 75 Respiratory Rate 33 H 20 21 Blood Pressure 136/84 116/69 127/74 Pulse Oximetry 95 98 96 05/29/18 20:00 05/29/18 20:36 05/29/18 21:00 Temperature Pulse Rate 84 85 Respiratory Rate 21 23 Blood Pressure 136/79 140/78 Pulse Oximetry 96 96 96 05/29/18 22:59 05/30/18 02:00 05/30/18 03:07 Temperature 98.3 F 99.2 F Pulse Rate 87 76 Respiratory Rate 18 17 18 Blood Pressure 129/67 129/75 Pulse Oximetry 96 97 05/30/18 08:00 Temperature 98.5 F Pulse Rate 69 Respiratory Rate 16 Blood Pressure 123/82 Pulse Oximetry 95 Intake & Output 05/29/18 05/30/18 05/30/18 18:59 06:59 18:59 Intake Total 1999 1480 / 1480 Output Total 1949 850 / 850 Balance 50 / 50 630 / 630 Intake: IV 1999 1000 / 1000 NS + KCl 20 mEq Inj 1,000 ML @ 1999 1000 / 1000 100 mls/hr IV.CONT .Q10H [facility] Rx #:[id number] Oral 480 / 480 Output: Urine 1950 / 1950 850 / 850 Other: # Voids 3 # Bowel Movements 0 Narrative: GENERAL: in NAD, SKIN: Warm and dry. HEAD: Atraumatic. Normocephalic. EYES: Pupils equal and round. No scleral icterus. ENT: No nasal bleeding or discharge. NECK: Trachea midline. No JVD. CARDIOVASCULAR: Regular rate and rhythm. RESPIRATORY: No accessory muscle use. MUSCULOSKELETAL: Extremities without clubbing, cyanosis, or edema. No obvious deformities. NEUROLOGICAL: Sitting up in a chair oriented 3 fluent articulate pleasant pleasant no facial asymmetry left hip tongue laceration moving all extremities gravity PSYCHIATRIC: Appropriate mood and affect; insight and judgment normal. - Constitutional no acute distress - Routine HEENT Exam Head: Present: normocephalic Objective Laboratory Results - last 24 hr 05/30/18 05/30/18 05:17 05:17 WBC 7.2 RBC 4.01 L Hgb 13.0 Hct 37.7 L MCV 94.1 MCH 32.5 MCHC 34.5 RDW 12.8 Plt Count 151 MPV 7.4 Sodium 142 Potassium 4.1 Chloride 103 Carbon Dioxide 28.7 Anion Gap 10 BUN 4 L Creatinine 0.74 Estimated GFR Greater than 89 Random Glucose 101 Calcium 8.2 L Total Bilirubin 0.6 AST 80 H ALT 38 Alkaline Phosphatase 49 Total Protein 6.3 L Albumin 2.9 L Review/Management - Diagnosis (1) Von Willebrands disease Code(s): D68.0 - Von Willebrand's disease Status: Acute Current Visit: Yes (2) Generalized seizure Code(s): R56.9 - Unspecified convulsions Status: Acute Current Visit: Yes (3) Hypokalemia Code(s): E87.6 - Hypokalemia Status: Resolved Current Visit: Yes (4) Hyponatremia Code(s): E87.1 - Hypo-osmolality and hyponatremia Status: Acute Current Visit: Yes - Review/Management Plan: Recurrent seizure. May be metabolic metabolic in nature related to hyponatremia , fatigue As he is works and drives and his sodium level is not terribly low I feel be safe to start him on an anticonvulsant for seizure prophylaxis. He may have an underlying tendency for seizure. Spouse is in agreement with this plan EEG; negative for seizure activity Continue Keppra Recommendations Neuro stable Consider outpatient polysomnogram at our center to exclude sleep apnea Can be discharged from neurologic standpoint followed up in the outpatient setting few weeks No driving operating any heavy or dangerous machinery or swimming alone for at least 6 months of being seizure free Discussed with patient and spouse at bedside
== END 2018-05-30 11:48 | disposition home or self-care (01) ==
LOC: NEDA 22:23 → NEPC 22:23 → NEPFCDU 05-28 03:34 → HIMC 05-28 06:25 → N06 05-29 21:55
PROVIDERS: ADMIT Family Medicine; ATTEND Family Medicine